=== PATIENT | female | born 1950 | race Caucasian/White ===

== ENCOUNTER 2020-12-04 07:43 | Emergency (ER) | payer MEDICARE, SELFPAY ==
[2020-12-04 07:44] VITALS: BP 158/88; PULSE 107; RESP 17; TEMP 37.4; O2SAT 95
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
[2020-12-04 08:48] LABS: Basophils Absolute Auto 0.1 K/mm3 (0.0-0.1); Basophils Percent Auto 0.7 % (0.2-1.2); Eosinophils Absolute Auto 0.2 K/mm3 (0-0.3); Eosinophils Percent Auto 0.9 % (0-4.4); Hematocrit 43.9 % (37.0-47.0); Hemoglobin 14.1 g/dL (12.0-15.0); Immature Granulocyte Absolute 0.13 K/mm3 (0.00-0.031); Immature Granulocyte Percent A 0.7 % (0-0.5); Lymphocytes Absolute Auto 3.14 K/mm3 (0.9-3.2); Mean Corpuscular HGB Conc 32.1 g/dl (32-36); Mean Corpuscular Hemoglobin 28.4 pg (26-34); Mean Corpuscular Volume 88.3 fl (80-100); Mean Platelet Volume 10.6 fl (7.4-10.4); Monocytes Absolute Auto 1.3 K/mm3 (0.1-0.6); Monocytes Percent Auto 7.5 % (2.6-8.5); Neutrophils Absolute Auto 12.6 K/mm3 (1.3-6.7); Neutrophils Percent Auto 72.2 % (45.5-73.1); Platelet Count Result 315 k/mm3 (150-375); Red Blood Count 4.97 M/mm3 (4.2-5.4); Red Cell Distribution Width 13.4 % (11.5-14.5); White Blood Count 17.4 K/mm3 (4.5-10.0)
[2020-12-04 08:56] LABS: Anion Gap 12 mmol/L (8-16); Blood Urea Nitrogen 15 mg/dL (7-17); Calcium 10.2 mg/dL (8.4-10.2); Carbon Dioxide 26 mmol/L (22-30); Chloride 98 mmol/L (98-107); Estimated CRCL calculation 51 ml/min; Estimated Glomerular Filt Rate > 60; Glucose 103 mg/dL (65-110); Potassium 3.8 mmol/L (3.4-5.0); Sodium 136 mmol/L (137-145)
[2020-12-04 08:58] LABS: INR 0.8; Prothrombin Time 11.5 Seconds (11.1-14.7)
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
--- NOTE | 2020-12-04 09:31 | PC.NURSE ---
Call For Help notified of patient in department at this time.
[2020-12-04] MEDS: metroNIDAZOLE 250 MG TABLET 2000 MG PO (11:52)
[2020-12-04] MEDS: AZITHROMYCIN 250 MG TABLET 1000 MG PO (11:53)
[2020-12-04] MEDS: cefTRIAXone 250 MG VIAL IM (11:53)
[2020-12-04] MEDS: LIDOCAINE HCL 1% LOCAL INJ 20 ML VIAL (11:53)
[2020-12-04 11:59] VITALS: BP 113/98; PULSE 98; RESP 22; O2SAT 100
== END 2020-12-04 12:09 | disposition home or self-care (01) ==
PROVIDERS: Emergency Provider Emergency Medicine; PCP Internal Medicine
DX: S40.021A Contusion of right upper arm, initial encounter (principal); S80.12XA Contusion of left lower leg, initial encounter; S80.11XA Contusion of right lower leg, initial encounter; Y04.8XXA Assault by other bodily force, initial encounter
CPT/HCPCS: 36415; 80048; 85025; 85610; 85730; 96372; 99285; A9270; J0696

== ENCOUNTER 2024-08-13 09:42 | Emergency (ER) | payer MEDICARE, SELFPAY ==
--- NOTE | ~2024-08-13 | XR_ITS ---
EXAMINATION: XR chest 2V DATE: 08/13/2024 10:37 INDICATION: Chest wall pain and swelling TECHNIQUE: PA and lateral views of the chest were obtained. COMPARISON: Chest radiograph dated 10/14/1989 FINDINGS: There is some eventration along the left and right hemidiaphragm. Small calcified nodule projecting o olimpia the lateral aspect of the right minor fissure along with a couple small calcite nodules projectin g over the spleen consistent with old granulomatous disease. No other airspace opacities, pulmonary e joseph, pleural effusion or pneumothorax. The cardiomediastinal silhouette is normal. Moderate thoracic spondylosis. IMPRESSION: 1. No acute cardiopulmonary disease. Reviewed, dictated and finalized at location A.
--- OUTSIDE RECORDS SUMMARY | 2024-08-13 09:44 | XMS_ITS | Continuity of Care Document ---
Author Organization [facility] Address [address] [place] [address] Phone Care Team Providers Care Log Skidder Name Role Phone Angelito Ward MD Unavailable Unavailable Allergies, Adverse Reactions, Alerts Substance Reaction Status Criticality No Known Allergies Active No Inform ation Medications Medication Instructions Dosage Effective Dates (start - stop) Status Comments zolpidem ER 12.5 mg tablet,extended release,multiphase take 1 tablet by oral route every day at bedtime 12.5 MG - Active IPRATROPIUM BROMIDE (unknown strength) spray 2 spray by intranasal route 1 - 2 times every day in each nostril Not Available - Active trazodone 100 mg tablet take 1 tablet by oral route every day after meals 100 MG - Active alprazolam 1 mg tablet take 0.5 tablet by oral route 3 times every day 0.5 MG - Active Results Test Name Date and Time Measure Units Reference Range Abnormal Flag Status Comments Panel Description: CBC W Auto Differential panel - Blood Final WBC 12:01:37 6.13 K/uL 3.80-10.80 Final Performed by:[facility] ([facility]) RBC 12:01:37 4.26 M/uL 3.80-5.10 Final Performed by:[facility] ([facility]) HGB 12:01:37 12.2 g/dL 11.7-15.5 Final Performed by:[facility] ([facility]) HCT 12:01:37 39.0 % 35.0-45.0 Final Performed by:[facility] ([facility]) MCV 12:01:37 91.5 fL 80.0-100.0 Final Performed by:[facility] ([facility]) MCH 12:01:37 28.6 pg 27.0-33.0 Final Performed by:[facility] ([facility]) MCHC 12:01:37 31.3 g/dL 32.0-36.0 L Final Performed by:[facility] ([facility]) RDW 12:01:37 13.4 % 11.0-15.0 Final Performed by:[facility] ([facility]) PLT 12:01:37 220 K/uL 150-400 Final Performed by:[facility] ([facility]) MPV 12:01:37 11.6 fL 6.0-12.0 Final Performed by:[facility] ([facility]) IG # 016 12:01:37 0.01 K/uL 0.00-0.05 Final Performed by:[facility] ([facility]) IG % 016 12:01:37 0.2 % 0.0-0.9 Final Performed by:[facility] ([facility]) Neut # 016 12:01:37 2.35 K/uL 1.50-7.80 Final Performed by:[facility] ([facility]) Neut % 2 016 12:01:37 38.3 % 40.0-75.0 L Final Performed by:[facility] ([facility]) Lym # 30-2 016 12:01:37 2.80 K/uL 0.85-3.90 Final Performed by:[facility] ([facility]) Lym % 2 016 12:01:37 45.7 % 16.0-46.0 Final Performed by:[facility] ([facility]) Mcintosh # Nov-30-2 016 12:01:37 0.60 K/uL 0.20-1.10 Final Performed by:[facility] ([facility]) Mcintosh % Nov-30-2 016 12:01:37 9.8 % 0.0-12.0 Final Performed by:[facility] ([facility]) Eos # Nov-30-2 016 12:01:37 0.27 K/uL 0.02-0.50 Final Performed by:[facility] ([facility]) Eos % 12:01:37 4.4 % 0.0-7.0 Final Performed by:[facility] ([facility]) Baso # 12:01:37 0.10 K/uL 0.00-0.20 Final Performed by:[facility] ([facility]) Baso % 12:01:37 1.6 % 0.0-2.0 Final Performed by:[facility] ([facility]) NRBC # 12:01:37 0.000 K/uL 0.000-0.012 Final Performed by:[facility] ([facility]) NRBC % 12:01:37 0.0 % 0.0-0.2 Final Performed by:[facility] ([facility]) Panel Description: Comprehensive Metabolic_ Fin al Sodium. 12:01:37 137 mmol/L 135-146 Final Performed by:[facility] ([facility]) Potassium. 12:01:37 4.6 mmol/L 3.5-5.3 Final Performed by:[facility] ([facility]) Chloride. 12:01:37 107 mmol/L 98-110 Final Performed by:[facility] ([facility]) CO2. 12:01:37 22 mEq/L 19-30 Final Performed by:[facility] ([facility]) Glucose. 12:01:37 95 mg/dL 65-99 Final Performed by:[facility] ([facility]) BUN. 12:01:37 13 mg/dL 10-20 Final Performed by:[facility] ([facility]) Creatinine. 12:01:37 0.72 mg/dL 0.57-1.11 Final Performed by:[facility] ([facility]) BUN/Crea. 12:01:37 18 Ratio 6-25 Final Performed by:[facility] ([facility]) Calcium. 12:01:37 9.0 mg/dL 8.6-10.4 Final Performed by:[facility] ([facility]) Albumin. 12:01:37 3.6 g/dL 3.4-4.8 Final Performed by:[facility] ([facility]) Protein, T. 12:01:37 6.1 g/dL 6.2-8.1 L Final Performed by:[facility] ([facility]) Globulin. 12:01:37 2.4 Calc 1.4-3.5 Final Performed by:[facility] ([facility]) A/G. 12:01:37 1.5 Ratio 0.8-2.0 Final Performed by:[facility] ([facility]) Bilirubin, T. 12:01:37 1.0 mg/dL 0.2-1.2 Final Performed by:[facility] ([facility]) Alk Phos. 12:01:37 86 U/L 40-150 Final Performed by:[facility] ([facility]) ALT. 12:01:37 11 U/L 0-55 Final Performed by:[facility] ([facility]) AST. 12:01:37 17 U/L 5-34 Final Performed by:[facility] ([facility]) EGFR. 12:01:37 81 mL/min/1 .73m2 >90 L Final Performed by:[facility] ([facility]) EGFRAA. 12:01:37 >90 mL/min/1 .73m2 >90 Final Performed by:[facility] ([facility]) Panel Description: Lipid Panel- Final Cholesterol. 12:01:37 193 mg/dL 0-200 Final Performed by:[facility] ([facility]) HDL,D. 12:01:37 80 mg/dL 40-120 Final Performed by:[facility] ([facility]) Triglyceride. 12:01:37 78 mg/dL 0-150 Final Performed by:[facility] ([facility]) Chol/HDL. 12:01:37 2.4 Ratio 3.7-6.7 L Final Performed by:[facility] ([facility]) LDLC. 12:01:37 97 md/dL 0-130 Final Performed by:[facility] ([facility]) Panel Description: Urinalysis - Reflex Final Color 12:01:37 COLORLESS Colorless - Yellow Final Performed by:[facility] ([facility]) Appear 12:01:37 CLEAR Clear Final Performed by:[facility] ([facility]) Glucose(U) 12:01:37 NEGATIVE Negative Final Performed by:[facility] ([facility]) Bili (U) 12:01:37 NEGATIVE Negative Final Performed by:[facility] ([facility]) Ketone 12:01:37 NEGATIVE Negative Final Performed by:[facility] ([facility]) Spec Gr 12:01:37 1.004 1.005-1.035 L Final Performed by:[facility] ([facility]) Blood (U) 12:01:37 NEGATIVE Negative Final Performed by:[facility] ([facility]) pH 12:01:37 6.0 5.0-8.0 Final Performed by:[facility] ([facility]) Protein(U) 12:01:37 NEGATIVE Negative Final Performed by:[facility] ([facility]) Urobilin 12:01:37 NORMAL mg/dL 0.2-1.0 Final Performed by:[facility] ([facility]) Nitrite 12:01:37 NEGATIVE Negative Final Performed by:[facility] ([facility]) Leukocyte 12:01:37 NEGATIVE Negative Final Performed by:[facility] ([facility]) Advance Directives Directive Yes / No Effective Date File Name No Information Encounters Encounter Description Practice Location Reason(s) For Visit Diagnoses Date Provider Providers Copied on Encounter [facility], [address], [place], [place], [id number] , tel: [phone] [place] Generalized anxiety disorderInsomnia, unspecified typeMood disorderLong term use of drug 6 Ed Eaton. [address] [place] [address], [id number] , . tel: [phone] Referring Provider: Angelito Ward, [address] [place] [address], [address] . tel:[phone] [facility], [address], [place], [place], [id number] , [place] tel: [phone] [place] Insomnia, unspecified typeMood disorderGeneralized anxiety disorder 6 [facility]. [address] [facility] [address], [id number] , . tel: [phone] Referring Provider: Angel[facility] Ward, [address] [facility] [address], [address] . tel:[phone] Family History Family Member Type Diagnosis Age At Onset No Information Payers Payer name Insurance type Covered democrat ID Authorashera rigoberto(s) [facility] [id number] Social History Type Description Quantity Date Captured Comments Alcohol Use Details Unknown Caffeine Use Details Unknown Tobacco Use Status No Information Smoking Status No Information Sex Female Chief Complaint And Reason For Visit No Information Reason For Referral Reason For Referral No Information History Of Present Illness Encounter Date Complaint History Of Prese nt Illness No Information Functional Status Date Functional Assessmen t No Information Instructions Date Instruction Additional Infor mation No Information Assessments Type Assessment Date No Information Patient Care Teams Name Effective Dates (start - stop) Status Members No Information
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
--- OUTSIDE RECORDS SUMMARY | 2024-08-13 09:45 | XMS_ITS | Continuity of Care Document ---
Author Organization [facility] Address [address] [place] [address] Phone Care Team Providers Care Ed Special Education Teacher Name Role Phone Angelito Ward MD Unavailable [...] WBC 12:01:37 6.13 K/uL 3.80-10.80 Final Performed by:[facility] ([facility]) RBC 12:01:37 4.26 M/uL 3.80-5.10 Final Performed by:[facility] ([facility]) HGB 12:01:37 12.2 g/dL 11.7-15.5 Final Performed by:[facility] ([facility]) HCT 12:01:37 39.0 % 35.0-45.0 Final Performed by:[facility] ([facility]) MCV 12:01:37 91.5 fL 80.0-100.0 [...] % 16.0-46.0 Final Performed by:[facility] ([facility]) [place] # Nov-30-2 016 12:01:37 0.60 K/uL 0.20-1.10 Final Performed by:[facility] ([facility]) [place] % Nov-30-2 016 12:01:37 9.8 % 0.0-12.0 [...] Diagnoses Date Provider Providers Copied on Encounter [facility] [address], [place], [place], [id number] , tel: [phone] [place] Generalized anxiety disorderInsomnia, unspecified typeMood disorderLong term use of drug 6 Ed Eaton. [address] [place] [address], [id number] , . tel: [phone] Referring Provider: Angelito Ward, [address] [place] [address], [address] . tel:[phone] [facility] [address], [place], [place], [id number] , [place] tel: [phone] [place] Insomnia, unspecified typeMood disorderGeneralized anxiety disorder 6 Ed Eaton. [address] [facility] [address], [id number] , . tel: [phone] Referring Provider: Angelito Ward, [address] [facility] [address], [address] . tel:[phone] Family History Family Member Type Diagnosis Age At Onset No Information Payers Payer name Insurance type Covered green party ID Authorashera irgoberto(s) [facility] [id number] Social History Type Description Quantity Date Captured [...]
[2024-08-13 09:57] VITALS: BP 149/96; PULSE 100; RESP 18; TEMP 36.1; O2SAT 99
--- NOTE | 2024-08-13 10:29 | ED_ITS ---
HPI - Nausea/Vomiting/Diarrhea General Chief complaint: Nausea/Vomiting/Diarrhea Stated complaint: VOMITING Source: patient Limitations: no limitations History of Present Illness HPI Narrative: 74-year-old female presents to [facility] with complaints nausea, vomiting and diarrhea since last night. Patient reports that she also noted a lump to her midsternal chest wall that she is concerned about. Patient reports that the area is painful to touch. Patient denies night sweats or unexplained weight loss. Patient reports that she has noticed occasional abdominal bloating but has not talked her primary care provider about this. Patient reports that she also ran out of her Ambien a few days ago. Patient reports that she has been taking Ambien and Xanax at bedtime for her primary care provider for the last 15 years since her MD elicited complaint: nausea, vomiting and diarrhea Onset (ago): day(s) (1) Associated nausea: Yes Associated abdominal pain: No Related Data Home Medications ?Medication ?Instructions ?Recorded ?Confirmed ?Last Taken ?Type alprazolam 1 mg tablet PO DAILY 12/04/20 Unknown History trazodone 100 mg tablet mg 08/13/24 Unknown History zolpidem 12.5 mg tablet,extended mg PO 08/13/24 Unknown History release,multiphase Allergies Allergy/AdvReac Type Severity Reaction Status Date / Time No Known Allergies Allergy Verified 08/13/24 10:00 Review of Systems Constitutional: Constitutional: Denies chills, Denies fatigue, Denies fever(s) and Denies weakness ENT: Denies vertigo, Denies dizziness, Denies epistaxis and Denies nasal congestion Gastrointestinal: Gastrointestinal: Denies abdominal pain, Reports bloating, Denies constipation, Denies heartburn, Reports diarrhea, Reports nausea and Reports vomiting Comments: area of swelling to chest wall Musculoskeletal: Musculoskeletal: Denies arthralgias Integumentary/Breasts: Skin/Breast: Denies erythema and Denies rash Neurologic: Denies dizziness and Denies syncope PMFSH Surgical History Surgical History No pertinent past surgical history Social History Social History Smoking status: Never smoker Alcohol intake: never Substance use: never Living arrangements: alone Gender identity (if verbalized by the patient): Female Comments At time of signature, I agree with nursing past medical, surgical, social and family history. There is no relevant family history pertinent to the presenting complaint. Exam Const: General: healthy appearing, no acute distress and alert Nutritional Appearance: well nourished Orientation/consciousness: patient oriented x3 Limitations: no limitations HENMT: Head: normal to inspection Neck: Neck: normal visual inspection Resp: Effort & Inspection: normal respiratory effort and not labored Auscultation: clear to auscultation bilaterally, no crackles, no rales, no rhonchi and no wheezes Cardio: Rate: regular rate Rhythm: regular rhythm Heart sounds: no murmurs GI: GI Palp: Yes Soft to palpation, No Tenderness to palpation present (GI), No Guarding due to palpation present (GI), No Rigid due to palpation, No Hernia present and No Palpable mass present Other: mild bloating noted Skin: General skin exam: normal color Rashes: no rashes Wounds: no wounds Other: no area of swelling noted upon palpation to chest; there is an area of pain noted to mid sternal chest wall upon palpation. Neuro: General: patient oriented x3 and moves all extremities Cranial nerves: Yes Nystagmus not present Speech: normal speech Psych: Mental Status: mental status grossly normal Affect: normal affect Attitude: cooperative Course Course Level of Care: Express Care Visit Vital Signs Vital signs: Vital Signs Temperature 36.1 C L 08/13/24 09:57 Pulse Rate 100 08/13/24 09:57 Respiratory Rate 18 08/13/24 09:57 Blood Pressure 149/96 H 08/13/24 09:57 Pulse Oximetry 99 08/13/24 09:57 Oxygen Delivery Room Air 08/13/24 09:57 Temperature 36.1 C L 08/13/24 09:57 Pulse Rate 100 08/13/24 09:57 Respiratory Rate 18 08/13/24 09:57 Blood Pressure 149/96 H 08/13/24 09:57 Pulse Oximetry 99 08/13/24 09:57 Oxygen Delivery Room Air 08/13/24 09:57 MDM - Nausea/Vomiting/Diarrhea MDM Narrative Medical decision making narrative: Offered patient ER evaluation due to concerns; patient reports that she would like to go home at this time. Patient understands importance of follow-up with primary care provider and proceeding to the emergency room symptoms worsen. Instructed patient not likely discuss chest x-ray results and further detail the primary care provider to ensure no further imaging will be needed. Differential Diagnosis Differential diagnosis: Likely gastroenteritis and dehydration Imaging Data Radiologist's impression: Ordering Physician: Rosette Shelley APRN Date of Service: 08/13/24 Procedure(s): XR chest 2V Accession Number(s): [id number] cc: Rosette Shelley APRN; Josephine, Lalo Mckeon MD~ EXAMINATION: XR chest 2V DATE: 08/13/2024 10:37 INDICATION: Chest wall pain and swelling TECHNIQUE: PA and lateral views of the chest were obtained. COMPARISON: Chest radiograph dated 10/14/1989 FINDINGS: There is some eventration along the left and right hemidiaphragm. Small calcified nodule projecting over the lateral aspect of the right minor fissure along with a couple small calcite nodules projecting over the spleen consistent with old granulomatous disease. No other airspace opacities, pulmonary edema, pleural effusion or pneumothorax. The cardiomediastinal silhouette is normal. Moderate thoracic spondylosis. IMPRESSION: 1. No acute cardiopulmonary disease. Reviewed, dictated and finalized at location A. Please be advised this is a medical document. It is intended for kvjo-gf-owof communication. It is written in medical language and may contain unfamiliar abbreviations or verbiage. Medical documents are intended to carry relevant information, facts as evident, and the clinical opinion of the practitioner at the time of the encounter. This report may have been done utilizing a voice recognition system. Attempts have been made to correct errors. However, there may be uncorrected grammatical, spelling, and recognition errors present. The file time of this note does not necessarily represent the time of service. Dictated By: Eusebio Yang MD 08/13/24 1050 Signed By: <Electronically signed by Eusebio Yang MD in OV> 08/13/24 1055 Critical Care Time Critical Care Time Critical Care Time: No Discharge Plan Discharge Clinical Impression: Nausea & vomiting Qualifiers: Vomiting type: unspecified Qualified Code(s): R11.2 - Nausea with vomiting, unspecified Patient Disposition: Home Condition: Stable Instructions: Acute Nausea and Vomiting (ED) Additional Instructions: Take Zofran as needed for nausea Follow-up with primary care provider soon as possible proceed to the emergency room if symptoms do not improve or worsen Patient Language: Kinyarwanda Prescriptions: New ondansetron 4 mg tablet,disintegrating 4 mg PO Q8H PRN (Reason: nausea and vomiting) Qty: 14 0RF No Action trazodone 100 mg tablet zolpidem 12.5 mg tablet,ext release multiphase PO alprazolam 1 mg tablet PO DAILY Follow-up/Referrals: Josephine,MD Lalo [Primary Care Provider] - Time of Disposition: 11:04
== END 2024-08-13 11:08 | disposition home or self-care (01) ==
PROVIDERS: Emergency Provider Nurse Practitioner Family; PCP Internal Medicine
DX: R11.2 Nausea with vomiting, unspecified (principal)
CPT/HCPCS: 71046; 99213; G0463

== ENCOUNTER 2024-09-09 00:38 | Day surgery (SDC) | payer MEDICARE, SELFPAY ==
[2024-08-31 10:05] VITALS: BMI 23.5
--- OUTSIDE RECORDS SUMMARY | 2024-09-09 00:40 | XMS_ITS | Clinical Summary ---
Author Organization [facility] Address [address] [place] [address] Care Team Providers Care Anodic Treater Name Role Phone Lalo Burton MD Primary Care Provider [phone] Source Comments [facility] [employer],non-owned Affiliates and Associated Physician Practices is amultiple site organization consisting of ambulatory clinics and hospital sitesin [place], [place], [place] and [place]. This disclosure is being madepursuant to the Care Everywhere program and may not contain all information available regarding this patient. Last updated 18.[facility] [employer] [facility] Allergies No known active allergies Medications * Be aware that medications may not be up to date on this document. Alwaysverify current medications with the patient. fluticasone propionate (FLONASE) 50 MCG/ACT nasal spray Meacham 1 Meacham into each nostril 2 times daily. 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) Narrative Transcriptions Kerry Ruiz MD - 05/24/2011 12:15 PM CST us Kerry Ruiz MD GI PROCEDURE ORDERABLES Final R esult [facility] ENDOSCOPY from Last 3 Months or Most Recently Relevant to Health Maintenance Insurance [facility] MANAGED MEDICARE ADV [facility] MANAGED MEDICARE ADV Advance Directives * Full Code (Latest Code Status on File) Date Activated Date Inactivated Comments 10/14/2018 7:46 PM 10/16/2018 7:24 PM * Full Code Date Activated Date Inactivated Comments 10/14/2018 3:50 PM 10/14/2018 7:46 PM Care Teams Anodic Treater Relationship Specialty Start Date End Date Lalo Burton MD [address] [place] [address] PCP - General 12/25/09
--- OUTSIDE RECORDS SUMMARY | 2024-09-09 00:40 | XMS_ITS | Continuity of Care Document ---
Author Organization [facility] Address [address] [place] [address] Phone Care Team Providers Care Election Judge Name Role Phone Angelito Ward MD Unavailable [...] WBC 12:01:37 6.13 K/uL 3.80-10.80 Final Performed by:[facility] (35) RBC 12:01:37 4.26 M/uL 3.80-5.10 Final Performed by:[facility] (35) HGB 12:01:37 12.2 g/dL 11.7-15.5 Final Performed by:[facility] (35) HCT 12:01:37 39.0 % 35.0-45.0 Final Performed by:[facility] (35) MCV 12:01:37 91.5 fL 80.0-100.0 [...] % 16.0-46.0 Final Performed by:[facility] (35) [place] # Nov-30-2 016 12:01:37 0.60 K/uL 0.20-1.10 Final Performed by:[facility] (35) [place] % Nov-30-2 016 12:01:37 9.8 % 0.0-12.0 [...] Diagnoses Date Provider Providers Copied on Encounter [facility], [address], [place], [place], [id number] , tel: [phone] [place] Generalized anxiety disorderInsomnia, unspecified typeMood disorderLong term use of drug 6 Ed Eaton. [address] [place] [address], [id number] , . tel: [phone] Referring Provider: Angelito Ward, [address] [place] [address], [address] . tel:[phone] [facility], [address], [place], [place], [id number] , [place] tel: [phone] [place] Insomnia, unspecified typeMood disorderGeneralized anxiety disorder 6 Ed Eaton. [address] [facility] [address], [id number] , . tel: [phone] Referring Provider: [facility] [address] [facility] [address], [address] . tel:[phone] Family History Family Member Type Diagnosis Age At Onset No Information Payers Payer name Insurance type Covered alliance party ID Authorashera rigoberto(s) [id number] Social History Type Description Quantity Date Captured [...]
[2024-09-09 09:25] VITALS: BP 148/86; PULSE 87; RESP 16; TEMP 36.2; O2SAT 99
[2024-09-09] MEDS: LACTATED RINGERS 1,000 ML 150 ML IV CONT (09:37)
--- NOTE | 2024-09-09 09:56 | WPDANESEPPF ---
Anes - Initial Pre Proc Eval Procedure: Operation Date: 09/09/24 10:30 Proposed Procedures p Colonoscopy - Deonte Arriaga MD Date/Time: 09/09/24 09:56 Surgeon: Deonte Arriaga MD Pre Op Diagnosis: Melena Patient Data Age: 74 Gender: F Height: 1.7 m Weight: 73.8 kg Last Vital Signs Temp 36.2 C L 09/09/24 09:25 Pulse 87 09/09/24 09:25 Resp 16 09/09/24 09:25 BP 148/86 H 09/09/24 09:25 Pulse Ox 99 09/09/24 09:25 O2 Del Method Room Air 09/09/24 09:25 Allergies Allergy/AdvReac Type Severity Reaction Status Date / Time No Known Allergies Allergy Verified 09/09/24 09:22 Home Medications Medication Instructions Recorded Confirmed Type alprazolam 1 mg tablet 0.5 mg PO DAILY PRN anxiety 12/04/20 09/09/24 History ondansetron 4 mg disintegrating 4 mg PO Q8H PRN nausea and 08/13/24 08/31/24 Rx tablet vomiting #14 tabs zolpidem 12.5 mg tablet,extended 12.5 mg PO DAILY 08/13/24 09/09/24 History release,multiphase Patient hx anesthesia problems: none Family hx anesthesia problems: none Results Review: All pre-operative results and documents have been reviewed as part of the pre-operative evaluation. [facility] Surgical History Surgical History No pertinent past surgical history Social History Social History Smoking status: Never smoker Alcohol intake: current Substance use: never Substance use type: does not use Living arrangements: alone Gender identity (if verbalized by the patient): Female Spiritual care concerns: No Anes - Eval Final PreProcedure Day of Procedure 09/09/24 09:56 Patient weight: normal Heart: regular rate and rhythm Lungs: clear to auscultation Airway: Mallampati scale class II Neurological: alert and oriented Last oral intake: >/= 8 hours ASA classification: II Emergent: no Anesthetic plan: proceed Anesthesia type and monitoring: general GIVS and standard monitoring Results Review: All pre-operative results and documents have been reviewed as part of the pre-operative evaluation. Informed Consent: The patient's anesthetic plan and its attendant risks and benefits were discussed with the patient/family/POA. Questions were solicited and answers provided to the satisfaction of the patient/family/POA.
--- NOTE | 2024-09-09 10:14 | PM.IMHP ---
H&P: HPI History of Present Illness Date/Time: 09/09/24 10:14 Chief Complaint: Positive Cologuard Narrative: the patient referred for colonoscopy due to a positive Cologuard test. Her last colonoscopy was more than 20 years ago. She denies rectal bleeding, anemia, melena, change in bowel habits or abdominal pain. There is no family history of colorectal cancer. Review of Systems Review of Systems: All systems reviewed & are unremarkable except as noted in HPI and below PMFSH Surgical History Surgical History No pertinent past surgical history Social History Social History Smoking status: Never smoker Alcohol intake: current Substance use: never Substance use type: does not use Living arrangements: alone Gender identity (if verbalized by the patient): Female Spiritual care concerns: No Meds Home Medications and Allergies Home Medications Medication Instructions Recorded Confirmed Type alprazolam 1 mg tablet 0.5 mg PO DAILY PRN anxiety 12/04/20 09/09/24 History ondansetron 4 mg disintegrating 4 mg PO Q8H PRN nausea and 08/13/24 08/31/24 Rx tablet vomiting #14 tabs zolpidem 12.5 mg tablet,extended 12.5 mg PO DAILY 08/13/24 09/09/24 History release,multiphase Allergies Allergy/AdvReac Type Severity Reaction Status Date / Time No Known Allergies Allergy Verified 09/09/24 09:22 Vital Signs Vital Signs - 24 hr 09/09/24 09:25 Temperature 97.2 F L Pulse Rate 87 Respiratory Rate 16 Blood Pressure 148/86 H Pulse Oximetry 99 Oxygen Delivery Room Air Exam Const: General: cooperative and healthy appearing Resp: Effort & Inspection: normal respiratory effort and able to speak in complete sentences Auscultation: clear to auscultation bilaterally Cardio: Rate: regular rate Rhythm: regular rhythm GI: Inspection: normal to inspection GI Palp: No No hepatosplenomegaly present Auscultation: normal bowel sounds Rectal Exam: deferred Skin: General skin exam: normal color Psych: Appearance: grossly normal Mental Status: mental status grossly normal Assessment and Plan Assessment and plan (1) Positive colorectal cancer screening using Cologuard test: Code(s): R19.5 - Other fecal abnormalities Status: Acute Assessment and Plan: The patient is deemed a good candidate for the procedure. Consent signed. Will proceed.
[2024-09-09 10:38] VITALS: BP 136/84; PULSE 84; RESP 20; O2SAT 96
[2024-09-09 10:48] VITALS: BP 142/85; PULSE 71; RESP 27; O2SAT 96
[2024-09-09 10:58] VITALS: BP 168/97; PULSE 68; RESP 14; O2SAT 100
== END 2024-09-09 11:07 | disposition home or self-care (01) ==
PROVIDERS: PCP Internal Medicine; Referring Provider Internal Medicine; Visit Provider Internal Medicine Gastroenterology
PROC: 0DJD8ZZ Inspection of Lower Intestinal Tract, Via Natural or Artificial Opening Endoscopic (ICD-10-PCS; CPT 45378; principal; 2024-09-09 10:30)
DX: R19.5 Other fecal abnormalities (principal); K64.8 Other hemorrhoids
CPT/HCPCS: 45378; J2003; J2704; J7120

== ENCOUNTER 2024-11-10 14:36 | Emergency (ER) | payer OTHER, MEDICARE, SELFPAY ==
[2024-11-10] VITALS (7 sets, daily range): BP systolic 163; BP diastolic 97; PULSE 89–102; RESP 15–21; TEMP 36.5; O2SAT 90–98
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
[2024-11-10] MEDS: ACETAMINOPHEN 500 MG TABLET 1000 MG PO (15:11)
[2024-11-10 15:33] LABS: Estimated CRCL calculation 52 ml/min; Estimated Glomerular Filt Rate > 60
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
--- OUTSIDE RECORDS SUMMARY | 2024-11-10 16:08 | XMS_ITS | Clinical Summary ---
Author Organization [facility] Address [address] 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 This disclosure is being madepursuant to the Care Everywhere program and may not contain all information available regarding this patient. Last updated 18.[facility] Allergies No known active allergies Medications * Be aware that medications may not be up to date on this document. Alwaysverify current medications with the patient. fluticasone propionate (FLONASE) 50 MCG/ACT nasal spray [place] 1 [place] into each nostril 2 times daily. 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 Gender Identity Not on file Sexual Orientation [...] 10:37 AM CDT Height 170.2 cm (5' 7) 10/16/2018 10:37 AM CDT Body Mass Index [...] MEDICARE AWV CALENDAR YEAR 2024 INFLUENZA VACCINE (#1) 2024 Respiratory Syncytial Virus (RSV) Vaccine Pt: [...] ENDOSCOPY, COLON, SCREENING Routine 05/26/2011 10:27 AM PRODUCTION TESTER from Last 3 Months or Most Recently Relevant to Health Maintenance Results * ENDOSCOPY, COLON, SCREENING (05/26/2011 10:27 AM PRODUCTION TESTER) Narrative Transcriptions Kerry Ruiz MD - 05/24/2011 12:15 PM CST us Kerry Ruiz MD GI PROCEDURE ORDERABLES Final R esult [facility] ENDOSCOPY from Last 3 Months or Most Recently Relevant to Health Maintenance Insurance [facility] MANAGED MEDICARE ADV [facility] MANAGED MEDICARE ADV Advance Directives * Full Code (Latest Code Status on File) Date Activated Date Inactivated Comments 10/14/2018 7:46 PM 10/16/2018 7:24 PM * Full Code Date Activated Date Inactivated Comments 10/14/2018 3:50 PM 10/14/2018 7:46 PM Care Teams Oil Distributor Tender Relationship Specialty Start Date End Date Lalo Burton MD [address] [place] [address] PCP - General 12/25/09
[2024-11-10] MEDS: ONDANSETRON INJ 4 MG/2 ML VIAL IV PUSH (17:04)
== END 2024-11-10 17:19 | disposition home or self-care (01) ==
PROVIDERS: Emergency Provider Physician Assistant; PCP Internal Medicine
DX: S16.1XXA Strain of muscle, fascia and tendon at neck level, initial encounter (principal); S09.90XA Unspecified injury of head, initial encounter; V44.5XXA Car driver injured in collision with heavy transport vehicle or bus in traffic accident, initial encounter; M50.321 Other cervical disc degeneration at C4-C5 level; M48.02 Spinal stenosis, cervical region; K20.90 Esophagitis, unspecified without bleeding; K29.70 Gastritis, unspecified, without bleeding; K65.4 Sclerosing mesenteritis; N32.89 Other specified disorders of bladder
CPT/HCPCS: 70450; 71260; 72125; 74177; 96374; 99284; A9270; J2405; Q9967